=== PATIENT | female | born 1945 | race Caucasian/White ===

== ENCOUNTER 2023-05-20 13:22 | Outpatient (CLI) | payer MEDICARE, SELFPAY | END 2023-05-20 13:23 | disposition home or self-care (01) | PROVIDERS: PCP Physician Assistant Medical; Visit Provider Physician Assistant Medical | DX: E11.69 Type 2 diabetes mellitus with other specified complication (principal); E78.2 Mixed hyperlipidemia; I48.91 Unspecified atrial fibrillation; R05.1 Acute cough | CPT/HCPCS: 80053; 80061; 82043; 82570; 82607; 83880 ==

== ENCOUNTER 2023-06-07 10:43 | Outpatient (CLI) | payer MEDICARE, SELFPAY ==
--- NOTE | 2023-06-07 11:00 | CT_ITS ---
Patient: ROBERTO WEATHERS Facility:?[facility] Patient ID:?[id number] Site Patient ID:?[id number]. Site :?[id number] Study:?CT-Chest W/O-06/07/2023 12:14:32 PM Ordering Physician:URMILA Final Report: Indication: Follow-up abnormal chest x-ray Technique: Noncontrast CT chest Please note that all CT scans at this facility use dose modulation, iterative reconstruction, and/or weight-based dosing when appropriate to reduce radiation dose to as low as reasonably achievable. Comparison: Chest x-ray 05/20/2023 Findings: Visualized thyroid is unremarkable. Atherosclerotic changes are present. Partially calcified right paratracheal lymph node represents sequela of granulomatous disease. Vascular calcifications. Cardiomegaly. No pericardial effusion. Simple cyst arises from the anterior left kidney measuring 4.4 cm. Degenerative changes are present at the left shoulder. Chronic deformity of the left anterior ribcage. Multilevel discogenic spurring throughout the thoracic spine. No vertebral body compression fracture. Partially calcified nodule right upper lobe measuring 5.1 millimeters, 06/18. No infiltrate or edema. No pneumothorax. Impression: Cardiomegaly with prominence of the central pulmonary vascularity accounting for the radiographic finding. 5.1 millimeter nodule right upper lobe. Optional follow-up in 1 year. Please note that all CT scans at this facility use dose modulation, iterative reconstruction, and/or weight-based dosing when appropriate to reduce radiation dose to as low as reasonably achievable. Dictated by Jon Nesbitt MD @ 06/07/2023 12:39:35 PM Signed by:?Jon Nesbitt MD @06/07/2023 12:39:35 PM (Electronic Signature)
== END 2023-06-07 10:44 | disposition home or self-care (01) ==
PROVIDERS: PCP Physician Assistant Medical; Visit Provider Physician Assistant Medical
DX: R93.89 Abnormal findings on diagnostic imaging of other specified body structures (principal); I51.7 Cardiomegaly; R91.1 Solitary pulmonary nodule
CPT/HCPCS: 71250

== ENCOUNTER 2024-05-27 14:31 | Outpatient (CLI) | payer MEDICARE, SELFPAY | END 2024-05-27 14:32 | disposition home or self-care (01) | LOC: LKVREF 14:32 | PROVIDERS: PCP Physician Assistant Medical; Visit Provider Physician Assistant Medical | DX: E78.5 Hyperlipidemia, unspecified (principal); R00.0 Tachycardia, unspecified; E11.69 Type 2 diabetes mellitus with other specified complication; I10 Essential (primary) hypertension; I48.91 Unspecified atrial fibrillation; E66.2 Morbid (severe) obesity with alveolar hypoventilation; F03.90 Unspecified dementia, unspecified severity, without behavioral disturbance, psychotic disturbance, mood disturbance, and anxiety; R06.02 Shortness of breath; G47.33 Obstructive sleep apnea (adult) (pediatric); I25.10 Atherosclerotic heart disease of native coronary artery without angina pectoris; M25.561 Pain in right knee | CPT/HCPCS: 80053; 80061; 82043; 82570; 82607; 83880; 84443 ==

== ENCOUNTER 2024-06-01 13:49 | Outpatient (CLI) | payer MEDICARE, SELFPAY | END 2024-06-01 13:50 | disposition home or self-care (01) | LOC: NFLDREF 06-03 06:37 | PROVIDERS: PCP Physician Assistant Medical; Referring Provider Physician Assistant Medical; Visit Provider Physician Assistant Medical | DX: E11.9 Type 2 diabetes mellitus without complications (principal); N39.0 Urinary tract infection, site not specified; B96.20 Unspecified Escherichia coli [E. coli] as the cause of diseases classified elsewhere; Z79.84 Long term (current) use of oral hypoglycemic drugs | CPT/HCPCS: 82043; 82570; 87086 ==

== ENCOUNTER 2024-06-11 14:14 | Outpatient (CLI) | payer MEDICARE, SELFPAY | END 2024-06-11 14:15 | disposition home or self-care (01) | LOC: LKVREF 14:15 | PROVIDERS: PCP Physician Assistant Medical; Visit Provider Physician Assistant Medical | DX: I50.9 Heart failure, unspecified (principal) | CPT/HCPCS: 83880 ==

== ENCOUNTER 2024-06-12 08:44 | Outpatient (CLI) | payer MEDICARE, SELFPAY ==
[2024-06-12] MEDS: PERFLUTREN LIPID MICROSPHERES 2 ML VIAL IVP (09:23)
--- NOTE | 2024-06-12 09:37 | PC.NURSE ---
20G IV placed in right AC. Definity given per news gathering technician instruction. IV then removed, intact.
--- NOTE | 2024-06-12 10:00 | CRLHL7_ITS ---
For Patients: As a result of the Century Cures Act, medical imaging exams and procedure reports are released immediately into your electronic medical record. You may view this report before your referring provider. If you have questions, please contact your health care provider. Indication: RIGHT LUNG NODULE, UPPER LOBE Technique: Noncontrast CT chest Please note that all CT scans at this facility use dose modulation, iterative reconstruction, and/or weight-based dosing when appropriate to reduce radiation dose to as low as reasonably achievable. Comparison: 06/07/2023 Findings: Decreased conspicuity of the previously noted nodular density within the right upper lobe. A residual curvilinear structure is present measuring 2.9 millimeters. Small subpleural nodules within the left lower lobe measure up to 3.7 millimeters. Subpleural nodule at the left upper lobe measures 3.4 millimeters. Linear scarring in the right lung apex anteriorly. Linear scarring in both lower lobes. No pleural effusion or pulmonary edema. No pneumothorax. Chronic small airway disease noted bilaterally. No acute infiltrate. No adenopathy. No fracture. Vascular calcifications. Cardiomegaly. Bilateral adrenal nodules. Small cyst within the liver. Stable exophytic left renal cyst. Impression: Decreased conspicuity of the previously noted right upper lobe pulmonary nodule. Other small nodules are present bilaterally. No further follow-up indicated unless the patient is a smoker. Please note that all CT scans at this facility use dose modulation, iterative reconstruction, and/or weight-based dosing when appropriate to reduce radiation dose to as low as reasonably achievable. Dictated by Jon Nesbitt MD @ 06/12/2024 11:52:20 AM (Electronically Signed)
== END 2024-06-12 08:45 | disposition home or self-care (01) ==
LOC: RAD 08:45
PROVIDERS: PCP Physician Assistant Medical; Visit Provider Physician Assistant Medical
DX: R91.1 Solitary pulmonary nodule (principal); R91.8 Other nonspecific abnormal finding of lung field; I50.9 Heart failure, unspecified; I48.91 Unspecified atrial fibrillation; I51.7 Cardiomegaly; I34.0 Nonrheumatic mitral (valve) insufficiency
CPT/HCPCS: 71250; 93306; Q9957

== ENCOUNTER 2025-02-04 14:02 | Outpatient (CLI) | payer MEDICARE, SELFPAY | END 2025-02-04 14:03 | disposition home or self-care (01) | PROVIDERS: PCP Physician Assistant Medical; Visit Provider Physician Assistant Medical | DX: I50.9 Heart failure, unspecified (principal); E66.01 Morbid (severe) obesity due to excess calories; Z68.41 Body mass index [BMI] 40.0-44.9, adult | CPT/HCPCS: 80053; 82607; 83880 ==